=== PATIENT | female | born 1985 | race American Indian/Alaskan Native ===

== ENCOUNTER 2017-10-13 20:28 | Emergency (ER) | payer SELFPAY ==
[2017-10-14] MEDS ORDERED: MOTRIN PO ONE (01:04)
[2017-10-14] MEDS ORDERED: TRIPLE ANTIBIOTIC TP ONE (01:04)
[2017-10-14] MEDS ORDERED: BOOSTRIX IM ONE (01:04)
--- NOTE | 2017-10-14 01:05 | Emergency Department Report ---
ED Fall HPI - General Chief Complaint: Fall Stated Complaint: FALL,BACK,NECK,LEG PAIN Time Seen by Provider: 10/14/17 00:02 Source: patient Mode of arrival: Ambulatory - History of Present Illness Initial Comments: 31-year-old female presents with complaint of left hand pain right knee pain and lower back pain status post mechanical fall. Patient is awake alert and oriented 3. States she tripped when she accidentally stepped into a large hole in street while walking on street yesterday. States it may have been slightly dirty water in the hole. Complaining of right knee aching and lower back aching. Patient denies sustaining any lacerations but does have 2 small abrasions left palm. Patient is awake alert nights 3 not in acute distress and ambulatory. She was assisted by coworkers which walking with her. Denies any head or neck trauma. Denies any loss of consciousness associated with fall. Complaint: fall Onset/Timin -: days(s) Fall From: standing Fall Witnessed: yes, by bystander Place Fall Occurred: street Loss of Consciousness: none Prolonged Down Time?: no Symptoms Prior to Fall: none Location - Extremities: Left: Hand, Right: Knee Severity: moderate Severity scale (0 -10): 5 Quality: aching Context: tripped/slipped Associated Symptoms: denies - Related Data Previous Rx's Medication Instructions Recorded Last Taken Type Cyclobenzaprine [Flexeril] 10 mg PO TID PRN #10 tablet 10/14/17 Unknown Rx Ibuprofen [Motrin] 800 mg PO Q8HR PRN #20 tablet 10/14/17 Unknown Rx Allergies Allergy/AdvReac Type Severity Reaction Status Date / Time No Known Allergies Allergy Verified 10/13/17 21:15 ED Review of Systems ROS: Stated complaint: FALL,BACK,NECK,LEG PAIN Other details as noted in HPI ED Past Medical Hx - Past Medical History Previous Medical History?: Yes Hx Asthma: Yes - Surgical History Past Surgical History?: No - Social History Smoking Status: Current Every Day Smoker - Medications Home Medications: Home Medications Medication Instructions Recorded Confirmed Last Taken Type Cyclobenzaprine [Flexeril] 10 mg PO TID PRN #10 tablet 10/14/17 Unknown Rx Ibuprofen [Motrin] 800 mg PO Q8HR PRN #20 tablet 10/14/17 Unknown Rx ED Physical Exam - General Limitations: No Limitations ED Course Vital Signs 10/13/17 10/14/17 21:15 01:17 Temperature 98.7 F Pulse Rate 71 Respiratory 20 16 Rate Blood Pressure 94/64 O2 Sat by Pulse 100 Oximetry Critical care attestation.: If time is entered above; I have spent that time in minutes in the direct care of this critically ill patient, excluding procedure time. ED Disposition Clinical Impression: Fall with no significant injury Qualifiers: Encounter type: initial encounter Qualified Code(s): W19.XXXA - Unspecified fall, initial encounter Hand abrasion Qualifiers: Encounter type: initial encounter Laterality: left Qualified Code(s): S60.512A - Abrasion of left hand, initial encounter Right knee sprain Qualifiers: Encounter type: initial encounter Involved ligament of knee: unspecified ligament Qualified Code(s): S83.91XA - Sprain of unspecified site of right knee , initial encounter Back pain Qualifiers: Back pain location: low back pain Chronicity: acute Back pain laterality: unspecified Sciatica presence: unspecified whether sciatica present Qualified Code(s): M54.5 - Low back pain Disposition: - TO HOME OR SELFCARE Is pt being admited?: No Does the pt Need Aspirin: No Condition: Stable Instructions: Abrasion (ED), Back Pain (ED), Knee Sprain (ED) Prescriptions: Cyclobenzaprine [Flexeril] 10 mg PO TID PRN #10 tablet PRN Reason: Muscle Spasm Ibuprofen [Motrin] 800 mg PO Q8HR PRN #20 tablet PRN Reason: Pain , Severe (7-10) Referrals: [facility] [Provider Group] - 3-5 Days NINI HOFF MD [Staff Physician] - 3-5 Days Forms: Work/School Release Form(ED) Time of Disposition: 01:38
--- NOTE | 2017-10-14 01:36 | XRay Report ---
FINAL REPORT EXAM: XR KNEE 1-2V RT HISTORY: s/p fall COMPARISON: None available. FINDINGS: Two views of right knee obtained. Bony structures are intact. Joint spaces are preserved. No acute fracture dislocation. IMPRESSION: No acute bony abnormality.
--- NOTE | 2017-10-14 01:36 | XRay Report ---
FINAL REPORT EXAM: XR SPINE LUMBOSACRAL 2-3V HISTORY: s/p fall back pain COMPARISON: None available. FINDINGS: Two views of the lumbar spine obtained. Lumbar vertebral body heights and disc heights are preserved. Pedicles are intact. No spondylolisthesis. IMPRESSION: Normal height and alignment of the lumbar spine.
[2017-10-14 01:49] VITALS: BP 104/59
== END 2017-10-14 01:48 | disposition home or self-care (01) ==
LOC: ED 20:28
DX: S83.91XA Sprain of unspecified site of right knee, initial encounter (principal); S60.512A Abrasion of left hand, initial encounter; M54.5 Low back pain; J45.909 Unspecified asthma, uncomplicated; F17.200 Nicotine dependence, unspecified, uncomplicated; W01.0XXA Fall on same level from slipping, tripping and stumbling without subsequent striking against object, initial encounter; Y93.01 Activity, walking, marching and hiking; Y92.410 Unspecified street and highway as the place of occurrence of the external cause; Y99.8 Other external cause status
CPT/HCPCS: 72100; 90471; 90715; 99283; A6250

== ENCOUNTER 2018-01-19 22:30 | Emergency (ER) | payer SELFPAY ==
[2018-01-20 00:15] VITALS: BP 93/64
== END 2018-01-20 00:15 | disposition left against medical advice (07) ==
LOC: ED 22:30
DX: R11.10 Vomiting, unspecified (principal); R19.7 Diarrhea, unspecified; Z53.21 Procedure and treatment not carried out due to patient leaving prior to being seen by health care provider

== ENCOUNTER 2018-08-07 14:56 | Emergency (ER) | payer OTHER ==
--- NOTE | 2018-08-07 15:08 | Emergency Department Report ---
Blank Doc - Documentation Documentation: This is a 32-year-old female that presents with SOB. This initial assessment/diagnostic orders/clinical plan/treatment(s) is/are subject to change based on patient's health status, clinical progression and re- assessment by fellow clinical providers in the ED. Further treatment and workup at subsequent clinical providers discretion. Patient/guardians urged not to elope from the ED as their condition may be serious if not clinically assessed and managed. Initial orders include: 1- Patient sent to [facility] for further evaluation and treatment 2- breathing treatment/steroids 3- CXR
[2018-08-07] MEDS ORDERED: PROVENTIL IH ONE (15:09)
[2018-08-07] MEDS ORDERED: DECADRON IM ONE (15:09)
[2018-08-07] MEDS ORDERED: ATROVENT IH ONE (15:09)
--- NOTE | 2018-08-07 15:29 | Emergency Department Report ---
Minor Respiratory - HPI Chief Complaint: Dyspnea/Respdistress Stated Complaint: LA Time Seen by Provider: 08/07/18 15:07 Duration: 1 Day Pain Location: Chest Severity: moderate Minor Respiratory: Yes Able to Tolerate Fluids, Yes Cough, Yes Shortness of Breath, No Rhinorrhea, No Sore Throat, No Ear Pain, No Sick Contacts, No Hemoptysis, No Chest Pain, No Fever Other History: pt is 32 yo who comes in with wheezing and sob. She has PMH asthma. ED Review of Systems ROS: Stated complaint: LA Other details as noted in HPI Comment: All other systems reviewed and negative ED Past Medical Hx - Past Medical History Previous Medical History?: Yes Hx Asthma: Yes - Surgical History Past Surgical History?: No - Family History Family history: no significant - Social History Smoking Status: Current Every Day Smoker Substance Use Type: None - Medications Home Medications: Home Medications Medication Instructions Recorded Confirmed Last Taken Type Albuterol Sulfate [Proair 90 mcg IH Q6H PRN #1 [email or web address] 08/07/18 Unknown Rx Respiclick] Amoxicillin [Trimox CAP] 500 mg PO BID #20 capsule 08/07/18 Unknown Rx Cetirizine HCl [ZyrTEC] 10 mg PO DAILY #30 capsule 08/07/18 Unknown Rx Fluticasone [Flonase] 1 spray NS QDAY #1 bottle 08/07/18 Unknown Rx predniSONE [Deltasone] 20 mg PO DAILY #5 tablet 08/07/18 Unknown Rx Minor Respiratory Exam - Exam General: Vital signs noted. No distress. Alert and acting appropriately. HEENT: Yes Moist Mucous Membranes, No Pharyngeal Erythema, No Pharyngeal Exudates, No Rhinorrhea, No Conjuctival Injection, No Frontal Tenderness, No Maxillary Tenderness Ear: Neither TM Bulge, Neither TM Erythema, Neither EAC Pain, Neither EAC Discharge Neck: Yes Supple, No Adenopathy Lungs: Yes Good Air Exchange, Yes Wheezes, No Ronchi, No Stridor, No Cough, No Labored Respirations, No Retractions, No Use of Accessory Muscles, No Other Abnormal Lung Sounds Heart: Yes Regular, No Murmur Abdomen: Yes Normal Bowel Sounds, No Tenderness, No Peritoneal Signs Skin: No Rash, No Edema Neurologic: Alert and oriented, no deficits. Musculoskeletal: Unremarkable. ED Course Vital Signs 08/07/18 15:09 Temperature 97.9 F Pulse Rate 97 H Respiratory 28 H Rate Blood Pressure 108/68 O2 Sat by Pulse 100 Oximetry ED Medical Decision Making - Medical Decision Making simple urti asthma ae no fever non toxic ambulatory taking po RT treatment, steroids in ER dec wheezing no fever no sputum dc home with discharge plan of care Vital Signs 08/07/18 08/07/18 08/07/18 15:09 15:27 16:40 Temperature 97.9 F Pulse Rate 97 H 82 Pulse Rate [ 84 Bilateral] Pulse Rate [ 86 Throughout] Respiratory 28 H Rate Respiratory 12 Rate [Bilateral ] Respiratory 14 Rate [ Throughout] Blood Pressure 108/68 106/58 O2 Sat by Pulse 100 100 Oximetry 08/07/18 16:51 Temperature Pulse Rate Pulse Rate [ Bilateral] Pulse Rate [ Throughout] Respiratory 18 Rate Respiratory Rate [Bilateral ] Respiratory Rate [ Throughout] Blood Pressure O2 Sat by Pulse Oximetry Critical care attestation.: If time is entered above; I have spent that time in minutes in the direct care of this critically ill patient, excluding procedure time. ED Disposition Clinical Impression: Asthma, acute, URTI (acute upper respiratory infection) Disposition: DC- TO HOME OR SELFCARE Is pt being admited?: No Does the pt Need Aspirin: No Condition: Stable Instructions: Asthma (ED) Additional Instructions: DIET TOLERATED MEDS ORDERED TODAY IN ER FOLLOW INSTRUCTIONS ON THE BOTTLE FOLLOW UP PCP WITHIN 48 HOURS TO ENSURE YOU ARE GETTING BETTER ACTIVITY TOLERATED MOTRIN OR TYLENOL FOR PAIN OR FEVER RETURN TO THE ER FOR WORSENING SYMPTOMS NOT RELIEVED BY YOUR MEDICATIONS. Prescriptions: predniSONE [Deltasone] 20 mg PO DAILY #5 tablet Fluticasone [Flonase] 1 spray NS QDAY #1 bottle Albuterol Sulfate [Proair Respiclick] 90 mcg IH Q6H PRN #1 aer.[email or web address] PRN Reason: Wheezing Amoxicillin [Trimox CAP] 500 mg PO BID #20 capsule Cetirizine HCl [ZyrTEC] 10 mg PO DAILY #30 capsule Referrals: [facility] [Outside] - 3-5 Days Forms: Work/School Release Form(ED) Time of Disposition: 15:27
[2018-08-07 16:54] VITALS: BP 106/58
== END 2018-08-07 16:54 | disposition home or self-care (01) ==
LOC: ED 14:56
DX: J45.909 Unspecified asthma, uncomplicated (principal); J06.9 Acute upper respiratory infection, unspecified; F17.200 Nicotine dependence, unspecified, uncomplicated
CPT/HCPCS: 94644; 96372; 99282; J1100